=== PATIENT | male | born 1985 | race Hispanic/Latino ===

== ENCOUNTER 2019-09-25 10:17 | Outpatient (CLI) | payer OTHER ==
--- NOTE | 2019-09-25 10:47 | RAD ---
Exam: 2 views lumbar spine HISTORY: Acute bilateral back pain. FINDINGS: 5 lumbar type vertebra. Lumbar spine vertebral body height is maintained. No fracture. Pres erved disc space heights. No spondylolisthesis or spondylolysis. Visualized bony pelvis is intact. IMPRESSION: No significant degenerative change.
== END 2019-09-25 10:18 | disposition home or self-care (01) ==
LOC: BICRAD 10:17
PROVIDERS: ATTEND Internal Medicine
DX: M54.5 Low back pain (principal)
CPT/HCPCS: 72100

== ENCOUNTER 2019-11-25 06:46 | Outpatient (CLI) | payer OTHER ==
--- NOTE | 2019-11-25 07:31 | ULT ---
Sonogram right upper quadrant HISTORY: Abnormal liver function tests. FINDINGS: Gallbladder has a normal appearance without stone evident. Common duct is 0.4 cm. Liver is diffusely echogenic. A focal area of more normal echogenicity near the gallbladder fossa lik jeronimo represents sparing of fatty infiltration. No free fluid. No intrahepatic biliary dilatation. IMPRESSION : Hepato-steatosis. No evidence of gallstones or biliary obstruction.
== END 2019-11-25 06:47 | disposition home or self-care (01) ==
LOC: BICULT 06:46
PROVIDERS: ATTEND Family Medicine
DX: R74.8 Abnormal levels of other serum enzymes (principal); K76.0 Fatty (change of) liver, not elsewhere classified
CPT/HCPCS: 76705

== ENCOUNTER 2022-03-21 17:30 | Outpatient (CLI) | payer OTHER | END 2022-03-21 17:31 | disposition home or self-care (01) | LOC: SLEEPLAB 17:30 | PROVIDERS: ATTEND Family Medicine | DX: G47.33 Obstructive sleep apnea (adult) (pediatric) (principal); R53.83 Other fatigue; R09.89 Other specified symptoms and signs involving the circulatory and respiratory systems; E66.9 Obesity, unspecified; K21.9 Gastro-esophageal reflux disease without esophagitis; R06.83 Snoring; E11.9 Type 2 diabetes mellitus without complications; Z68.41 Body mass index [BMI] 40.0-44.9, adult | CPT/HCPCS: 95800 ==

== ENCOUNTER 2024-05-14 15:51 | Outpatient (CLI) | payer OTHER | END 2024-05-14 15:52 | disposition home or self-care (01) | LOC: RAD 15:51 | PROVIDERS: ATTEND Internal Medicine | DX: R06.00 Dyspnea, unspecified (principal) | CPT/HCPCS: 71046 ==

== ENCOUNTER 2025-04-03 13:51 | Outpatient (CLI) | payer MEDICAID | END 2025-04-03 13:52 | disposition home or self-care (01) | LOC: BICRAD 13:51 | PROVIDERS: ATTEND Family Medicine | DX: M54.50 Low back pain, unspecified (principal); M47.816 Spondylosis without myelopathy or radiculopathy, lumbar region; M47.817 Spondylosis without myelopathy or radiculopathy, lumbosacral region; M40.56 Lordosis, unspecified, lumbar region | CPT/HCPCS: 72100 ==